=== PATIENT | male | born 1985 | race Caucasian/White ===

== ENCOUNTER 2020-08-24 10:11 | Emergency (ER) | payer BC ==
[~2020-08-24] VITALS: Ht 175.3 cm; Wt 81.6 kg
--- NOTE | 2020-08-24 10:37 | NUR ---
Dr [email or web address], medical screening exam in progress
[2020-08-24 11:39] LABS: CARBON DIOXIDE 23 mmol/L (21-32); CHLORIDE 106 mmol/L (98-107); CREATININE 1.4 mg/dL (0.6-1.3); GLUCOSE 93 mg/dL (74-106); POTASSIUM 4.8 mmol/L (3.5-5.1); UREA NITROGEN, BLOOD 18 mg/dL (7-18)
[2020-08-24 11:45] LABS: ALANINE AMINOTRANSFERASE 21 U/L (16-63); ALKALINE PHOSPHATASE 68 U/L (50-136); ASPARTATE AMINOTRANSFERASE 17 U/L (15-37); BILIRUBIN,TOTAL 0.6 mg/dL (0.2-1.0); TOTAL PROTEIN, SERUM 7.7 g/dL (6.4-8.2)
[2020-08-24 12:04] LABS: HEMATOCRIT 46.1 % (36.7-47.1); MEAN CORPUSCULAR HEMOGLOBIN 30.8 uug (23.8-33.4); MEAN CORPUSCULAR VOLUME 93.2 fL (73.0-96.2); PLATELET COUNT (AUTO) 199 K/uL (152-348)
--- NOTE | 2020-08-24 12:10 | NUR ---
Patient is resting comfortably on gurney while using his personal electronic device, NAD
--- NOTE | 2020-08-24 14:11 | NUR ---
Copies of all the tests' results were given to patient. Patient discharged to home in stable condition. Written and verbal after care instructions given with brisk steady gait. Patient verbalized understanding & compliance of instructions. Stressed follow up with his primary doctor and ortho- Doctor Travis or return to ER for worsening s/s.
== END 2020-08-24 14:14 | disposition home or self-care (01) ==
LOC: ER 10:18
DX: S76.111A Strain of right quadriceps muscle, fascia and tendon, initial encounter (principal); Y93.01 Activity, walking, marching and hiking; Y93.89 Activity, other specified; Y92.831 Amusement park as the place of occurrence of the external cause; Y99.8 Other external cause status; L98.9 Disorder of the skin and subcutaneous tissue, unspecified
CPT/HCPCS: 36415; 85025; 85651; 86140; A4663